=== PATIENT | female | born 1940 | race Caucasian/White ===

== ENCOUNTER 2017-04-25 10:21 | Day surgery (SDC) | payer MEDICARE ==
[~2017-04-25] VITALS: Ht 162.6 cm; Wt 99.5 kg
[~2017-04-25 10:21] MED LIST: ATOR20 PO; Aspir 8181 MG PO; CYCL10; FURO20 PO; GABA300 PO; HYDR1TAB94 PO; K-Tab10 MEQ PO; LEVSOD75 PO; LOSA50 PO; Omeprazole20 M1 PO
[2017-04-25] MEDS ORDERED: PRED5 PO (10:58)
[2017-07-31] MEDS ORDERED: CYCL10 PO (10:06)
== END 2017-04-25 12:40 | disposition home or self-care (01) ==
LOC: ORSCSDS 10:21
PROVIDERS: Orthopaedic Surgery
PROC: 3E0R33Z Introduction of Anti-inflammatory into Spinal Canal, Percutaneous Approach (ICD-10-PCS; principal; 2017-04-25 11:30)
DX: M48.062 Spinal stenosis, lumbar region with neurogenic claudication (principal); E78.5 Hyperlipidemia, unspecified; Z87.891 Personal history of nicotine dependence; Z79.82 Long term (current) use of aspirin; Z79.899 Other long term (current) drug therapy
CPT/HCPCS: J1040

== ENCOUNTER 2017-08-19 09:35 | Inpatient (IN) | payer MEDICARE ==
[~2017-08-19] VITALS: Ht 162.6 cm; Wt 99.2 kg
[~2017-08-19 09:35] MED LIST changes: +CYCL10 PO; +PRED5 PO
[2017-08-19 21:21] LABS: PCO2 Arterial 55.7 mmHg (35-45); pH Blood Arterial 7.29 (7.35-7.45)
[2017-08-19 21:22] LABS: PO2 Arterial 62.1 mmHg (80-100)
[2017-08-20 05:02] LABS: PCO2 Arterial 42.5 mmHg (35-45); PO2 Arterial 54.7 mmHg (80-100); pH Blood Arterial 7.41 (7.35-7.45)
[2017-08-21 11:12] LABS: Bun/Creatinine Ratio 14.5 (12.0-20.0); Calcium, Blood 8.3 mg/dL (8.5-10.1); Creatinine, Blood 1.17 mg/dL (0.40-1.00); Potassium, Blood 3.8 mmol/L (3.5-5.5)
[2017-08-23 04:15] LABS: BASOPHILS ABSOLUTE AUTO 0.03 K/mm3 (0.00-0.23); BASOPHILS PERCENT AUTO 0 % (0-2); EOSINOPHILS ABSOLUTE AUTO 0.24 K/mm3 (0.00-0.68); EOSINOPHILS PERCENT AUTO 3 % (0-6); Hematocrit 33.7 % (33.0-51.0); Hemoglobin 10.4 g/dL (11.5-16.0); IMMATURE GRAN ABSOLUTE AUTO 0.04 K/mm3 (0.00-0.10); IMMATURE GRAN PERCENT AUTO 1 % (0-1); LYMPHOCYTES ABSOLUTE AUTO 1.15 K/mm3 (0.84-5.20); LYMPHOCYTES PERCENT AUTO 14 % (21-46); MONOCYTES ABSOLUTE AUTO 0.99 K/mm3 (0.16-1.47); MONOCYTES PERCENT AUTO 12 % (4-13); Mean Corpuscular HGB 29.5 pg (26.0-34.0); Mean Corpuscular HGB Conc 30.9 g/dL (31.5-36.5); Mean Corpuscular Volume 96 fL (80-100); NEUTROPHILS ABSOLUTE AUTO 5.89 K/mm3 (1.96-9.15); NEUTROPHILS PERCENT AUTO 71 % (41-73); RDW Coefficient Variation 15.8 % (11.7-14.2); RDW Standard Deviation 55.5 fL (35.1-46.3); Red Blood Cell Count 3.53 M/mm3 (3.80-5.20); White Blood Cell Count 8.34 K/mm3 (4.00-11.30)
[2017-08-23 04:18] LABS: Mean Platelet Volume 10.5 fL (9.1-12.4); Platelet Count 173 K/mm3 (150-400)
[2017-08-23 04:30] LABS: Alanine Aminotransfer (ALT/SGP 23 U/L (12-78); Albumin, Blood 2.3 g/dL (3.4-5.0); Albumin/Globulin Ratio 0.7 (0.8-1.8); Alk Phos 65 U/L (50-136); Anion Gap 8 mmol/L (6-16); Aspartate Aminotrans (AST/SGOT 25 U/L (12-37); Bilirubin, Total 0.7 mg/dL (0.1-1.0); Blood Urea Nitrogen 16 mg/dL (8-24); CO2, Blood 27 mmol/L (21-32); Calcium, Blood 7.9 mg/dL (8.5-10.1); Chloride, Blood 108 mmol/L (98-108); Creatinine, Blood 0.89 mg/dL (0.40-1.00); Globulin, Blood 3.3 g/dL (2.2-4.0); Glomerular Filtration Rate >60 (60-); Glucose, Blood 74 mg/dL (70-99); Potassium, Blood 4.2 mmol/L (3.5-5.5); Sodium, Blood 143 mmol/L (136-145); Total Protein, Blood 5.6 g/dL (6.4-8.2)
[2017-08-23] MEDS ORDERED: CARV3.125 PO (12:48)
[2017-08-23] MEDS ORDERED: ONDA4ODT MM (12:49)
== END 2017-08-23 13:53 | disposition home or self-care (01) | DRG 518 ==
LOC: ORSCMMR 09:35 → ICUE 09:35 → ORSCMMR 09:36 → ORD 13:30 → ICUE 20:02 → ICUW 20:02 → ICUE 20:03 → ORSCMMR 20:03 → ICUE 08-20 15:44 → SURS 08-20 17:31
PROVIDERS: Internal Medicine; Internal Medicine Critical Care Medicine; Orthopaedic Surgery
PROC: 00UT0JZ Supplement Spinal Meninges with Synthetic Substitute, Open Approach (ICD-10-PCS; 2017-08-19)
PROC: 5A1935Z Respiratory Ventilation, Less than 24 Consecutive Hours (ICD-10-PCS; 2017-08-19)
PROC: 0BH17EZ Insertion of Endotracheal Airway into Trachea, Via Natural or Artificial Opening (ICD-10-PCS; 2017-08-19)
PROC: 01NB0ZZ Release Lumbar Nerve, Open Approach (ICD-10-PCS; principal; 2017-08-19 13:30)
DX: M48.062 Spinal stenosis, lumbar region with neurogenic claudication (principal); J95.821 Acute postprocedural respiratory failure; G97.41 Accidental puncture or laceration of dura during a procedure; I12.9 Hypertensive chronic kidney disease with stage 1 through stage 4 chronic kidney disease, or unspecified chronic kidney disease; N18.3 Chronic kidney disease, stage 3 (moderate); M79.7 Fibromyalgia; M35.3 Polymyalgia rheumatica; E78.5 Hyperlipidemia, unspecified; E03.9 Hypothyroidism, unspecified; K21.9 Gastro-esophageal reflux disease without esophagitis; D47.2 Monoclonal gammopathy; Z68.37 Body mass index [BMI] 37.0-37.9, adult; E66.01 Morbid (severe) obesity due to excess calories
CPT/HCPCS: 31720; 36415; 36600; 71045; 80048; 80053; 82803; 83690; 83880; 85025; 87070; 87205; 93005; 93010; 94002; 94003; 94667; 97116; 97162; 97530; C9113; G8978; G8979; J0171; J0330; J0690; J0780; J1100; J1885; J2250; J2310; J2370; J2405; J2710; J2765; J3010; J3370; J3480; J7120

== ENCOUNTER 2018-05-17 17:05 | Observation (INO) | payer MEDICARE ==
[~2018-05-17] VITALS: Ht 162.6 cm; Wt 85.9 kg
[~2018-05-17 17:05] MED LIST changes: +CARV3.125 PO; +ONDA4ODT MM
[2018-05-17 17:20] LABS: Calcium, Ionized (POC) 1.15 mmol/L (1.10-1.46); Chloride (POC) 105 mmol/L (98-108); Creatinine (POC) 1.2 mg/dL (0.6-1.0); Glucose (ISTAT POC) 161 mg/dL (70-99); Hemoglobin (POC) 13.6 g/dL (12.0-16.0); Potassium (POC) 4.3 mmol/L (3.5-5.5); Sodium (POC) 140 mmol/L (135-148); Total CO2 (POC) 26 mmol/L (21-32)
[2018-05-17 17:32] LABS: BASOPHILS ABSOLUTE AUTO 0.03 K/mm3 (0.00-0.23); BASOPHILS PERCENT AUTO 0 % (0-2); EOSINOPHILS ABSOLUTE AUTO 0.11 K/mm3 (0.00-0.68); EOSINOPHILS PERCENT AUTO 1 % (0-6); Hematocrit 41.8 % (33.0-51.0); Hemoglobin 12.7 g/dL (11.5-16.0); IMMATURE GRAN ABSOLUTE AUTO 0.04 K/mm3 (0.00-0.10); IMMATURE GRAN PERCENT AUTO 0 % (0-1); LYMPHOCYTES ABSOLUTE AUTO 1.44 K/mm3 (0.84-5.20); LYMPHOCYTES PERCENT AUTO 16 % (21-46); MONOCYTES ABSOLUTE AUTO 0.67 K/mm3 (0.16-1.47); MONOCYTES PERCENT AUTO 8 % (4-13); Mean Corpuscular HGB 29.8 pg (26.0-34.0); Mean Corpuscular HGB Conc 30.4 g/dL (31.5-36.5); Mean Corpuscular Volume 98 fL (80-100); Mean Platelet Volume 10.1 fL (9.1-12.4); NEUTROPHILS ABSOLUTE AUTO 6.69 K/mm3 (1.96-9.15); NEUTROPHILS PERCENT AUTO 75 % (41-73); Platelet Count 266 K/mm3 (150-400); RDW Coefficient Variation 15.6 % (11.7-14.2); RDW Standard Deviation 56.2 fL (35.1-46.3); Red Blood Cell Count 4.26 M/mm3 (3.80-5.20); White Blood Cell Count 8.98 K/mm3 (4.00-11.30)
[2018-05-17] MEDS ORDERED: LEVSOD75 PO (17:34)
[2018-05-17] MEDS ORDERED: GABA300 PO (17:34)
[2018-05-17] MEDS ORDERED: PRED5 PO (17:34)
[2018-05-17] MEDS ORDERED: ATOR20 PO (17:36)
[2018-05-17] MEDS ORDERED: POTCHL10ER PO (17:36)
[2018-05-17] MEDS ORDERED: LOSA50 PO (17:37)
[2018-05-17 17:48] LABS: Albumin, Blood 3.2 g/dL (3.4-5.0); Albumin/Globulin Ratio 0.8 (0.8-1.8); Bilirubin, Total 0.4 mg/dL (0.1-1.0); Bun/Creatinine Ratio 20.8 (12.0-20.0); Creatinine, Blood 1.2 mg/dL (0.40-1.00); Globulin, Blood 4.1 g/dL (2.2-4.0); Potassium, Blood 4.3 mmol/L (3.5-5.5); Total Protein, Blood 7.3 g/dL (6.4-8.2); Troponin I 0.064 ng/mL (0.000-0.040)
--- NOTE | 2018-05-17 21:30 | NUR ---
[facility] PT ARRIVED TO [facility]IT FROM [facility]. BEDSIDE REPORT TAKEN FROM [facility] RN. PT IS AWAKE AND ALERT IN ROOM ABLE TO PARTICIPATE IN CONVERSATION. PT AFFECT IS PLEASENT AND COOPERATIVE W/ CARE. VSS STABLE. PT DENIES ANY CP OR SOB. REPORT MILD DISCOMFORT TO L CHEST WHERE NEW PACEMAKER SITE IS. DENIES ANY N/V. REPORTS FEELS TIRED. RESP EVEN UNLABORED ON 2L NC W/ SATS >95%, WILL WEEN O2 TO RA PT CLEARS FROM ANESETHESIA. CALL LIGHT IS IN REACH. FAMILY AT BEDSIDE.
--- NOTE | 2018-05-18 05:52 | NUR ---
SHIFT SUMMARY PT RESTING IN ROOM COMFORTABLY. NO ACUTE CHANGES T/O NIGHT. PT VSS POST PACEMAKER REMAINED STABLE. PT DENIED ANY N/V. REPORTS SOPME TENDERNESS TO PACE SITE. SITE IS WNL, SOME BLOOD NOTED TO DRESSING FROM PROCEDURE. NO HEMATOMAS NOTED. BLOOD HAS NOT INCREASED SINCE ARRIVAL. PT EDUCATED ON BEING CAUTIOUS WITH L ARM FOR SEVERAL DAYS. PT HAD SOME CONFUSION UPON WAKING AT 0400. PT EASILY REORIENTED TO TIME, PLACE, AND EVENT. PT IS SBA TO RR. DENIES ANY SOB. RESP EVEN UNLABORED ON RA, SATS >95%. CALL LIGHT IN REACH.
[2018-05-18] MEDS ORDERED: ACET325 PO (10:51)
[2018-05-18] MEDS ORDERED: AMLO5 PO (10:52)
== END 2018-05-18 12:44 | disposition home or self-care (01) ==
LOC: ER 17:05 → PCU 17:06 → ICUW 19:08 → PCU 19:08 → ER 19:08 → PCU 20:18 → ICUW 20:18 → PCU 20:18
PROVIDERS: Emergency Medicine; ADMIT Internal Medicine Cardiovascular Disease
DX: I44.2 Atrioventricular block, complete (principal); I45.2 Bifascicular block; I12.9 Hypertensive chronic kidney disease with stage 1 through stage 4 chronic kidney disease, or unspecified chronic kidney disease; N18.3 Chronic kidney disease, stage 3 (moderate); M12.9 Arthropathy, unspecified; F19.20 Other psychoactive substance dependence, uncomplicated; E66.9 Obesity, unspecified; Z91.041 Radiographic dye allergy status; Z79.899 Other long term (current) drug therapy; Z79.82 Long term (current) use of aspirin
CPT/HCPCS: 33208; 71045; 71046; 80047; 80053; 83735; 84484; 85014; 85025; 93005; 93010; 96374; 96375; 99152; 99153; 99285-25; C1785; C1786; C1898; G0378; J0461; J0610; J0690; J1200; J1644; J1720; J2250; J3010; J3490; J7030; J7040; Q0163

== ENCOUNTER → 2023-06-27 | Outpatient (CLI) | payer MEDICARE ==
[~2023-06-27] MED LIST changes: +ACET325 PO; +ALBU90OI INH; +AMLO5 PO; +POTCHL10ER PO; +PRED20 PO
== END ==
LOC: LAB 14:40 → LAB SHORT 14:40
DX: C44.519 Basal cell carcinoma of skin of other part of trunk (principal)
CPT/HCPCS: 88305

== ENCOUNTER → 2023-11-01 | Outpatient (CLI) | payer MEDICARE | END | disposition home or self-care (01) | LOC: LAB 19:13 → LAB SHORT 19:13 | DX: N39.0 Urinary tract infection, site not specified (principal) | CPT/HCPCS: 87077; 87086; 87186 ==